=== PATIENT | female | born 1990 | race African-American/Black ===

== ENCOUNTER 2019-12-31 19:24 | Observation (INO) | payer MEDICAID ==
[~2019-12-31] VITALS: Ht 160 cm; Wt 78.9 kg
== END 2019-12-31 20:50 | disposition home or self-care (01) | DRG 566 ==
LOC: LDRP 19:24
PROVIDERS: ADMIT Specialist; ATTEND Specialist
DX: O42.912 Preterm premature rupture of membranes, unspecified as to length of time between rupture and onset of labor, second trimester (principal); Z3A.22 22 weeks gestation of pregnancy
CPT/HCPCS: 59025; 76805; G0378